=== PATIENT | male | born 1965 | race Caucasian/White ===

== ENCOUNTER → 2018-03-04 00:11 | Outpatient (CLI) | payer MEDICAID, SELFPAY ==
--- NOTE | 2018-03-04 07:35 | DI.REPORT_ITS ---
SYMPTOMS/DIAGNOSIS: CHRONIC HEPATITIS B, B18.1, HYPERLIPIDEMIA, E78.5, BENIGN PROSTATIC HYPERPLASIA, N40.0, ABDOMINAL PAIN, R10.9 ABDOMINAL ULTRASOUND: Routine examination was performed. Comparison is 10/06/15. The aorta and IVC are not well visualized. The mid and distal aorta are of normal caliber. The proximal and mid inferior vena cava are unremarkable. The liver shows increased echogenicity consistent with fatty infiltration. No discrete hepatic mass is seen.. Portions of the liver cannot be well evaluated due to its position in the abdomen. The gallbladder is negative. No stones or sludge is seen. The pancreatic tail cannot be seen due to overlying bowel. The remainder of the pancreas is unremarkable. The patient is status post right nephrectomy. The left kidney is unremarkable. The spleen is mildly enlarged at 13.4 cm. IMPRESSION: 1. Limited examination due to patient body habitus and overlying bowel. 2. Hepatic steatosis. 3. Mild splenomegaly.
[2018-03-04 07:45] LABS: ALT 31 U/L (12-78); AST 24 U/L (15-37); Albumin 4.1 g/dL (3.4-5.0); Alkaline Phosphatase 66 U/L (46-116); Anion Gap 7.2 mmol/L (3-11); BUN 16 mg/dL (7-18); Bilirubin, Total 1.1 mg/dL (0.2-1.0); CO2 32.8 mmol/L (21.0-32.0); CREATININE 1.53 mg/dL (0.70-1.30); Calcium 9.2 mg/dL (8.5-10.1); Chloride 99 mmol/L (98-107); Cholesterol 250 mg/dL (50-200); Estimated GFR 48.22 (mL/min/1.73m2); Glucose 120 mg/dL (70-100); HDL Cholesterol 31 mg/dL (40-60); LDL CHOLESTEROL 166 mg/dL (<100); Sodium 139 mmol/L (136-145); Total Protein 8.3 g/dL (6.4-8.2); Triglyceride 327 mg/dL (30-150)
[2018-03-05 10:27] LABS: PSA, Screening 0.5 ng/ml (0-3.5)
== END ==
PROVIDERS: PCP Emergency Medicine; Visit Provider Emergency Medicine
DX: E78.5 Hyperlipidemia, unspecified (principal); B18.1 Chronic viral hepatitis B without delta-agent; N40.0 Benign prostatic hyperplasia without lower urinary tract symptoms; R10.9 Unspecified abdominal pain; Z12.5 Encounter for screening for malignant neoplasm of prostate; K76.0 Fatty (change of) liver, not elsewhere classified; R16.1 Splenomegaly, not elsewhere classified
CPT/HCPCS: 36415; 80053; 80061; 83721; 84153; 76700; 82105

== ENCOUNTER 2018-09-02 17:50 | Emergency (ER) | payer MEDICAID, SELFPAY ==
[2018-09-02] VITALS (29 sets, daily range): BP systolic 89–203; BP diastolic 58–147; PULSE 39–170; RESP 0–28; TEMP 34.8–35.7; O2SAT 81–95
--- NOTE | 2018-09-02 17:50 | DI.RAD_ITS ---
SYMPTOM/DIAGNOSIS: CARDIAC ARREST PORTABLE UPRIGHT CHEST: Comparison is made with 24 Apr 2016. The heart size is within normal limits for projection. An endotracheal tube has been inserted with tip at the level of the clavicles. A nasogastric tube projects beneath the diaphragm. The lungs are grossly clear. A lead partially obscures the right lung. IMPRESSION: Satisfactory position of endotracheal tube and nasogastric tube.
[2018-09-02 18:07] LABS: HCT 42.1 % (40.0-50.0); HGB 13.7 g/dL (13.5-17.5); Mean Corp. HGB Concentration 32.5 g/dL (32.0-36.0); Mean Corpuscular Hemoglobin 33.4 pg (27.0-33.0); Mean Corpuscular Volume 102.7 fL (80-95); Mean Platelet Volume 10.8 fL (8.0-11.0); Platelet Count 140 x1000/uL (130-400); RBC Distribution Width 12.3 % (11.8-14.1); White Blood Cell Count 15.61 k/cumm (4.4-10.8)
[2018-09-02] MEDS: Aspirin 300 MG SUPP PR (18:07)
[2018-09-02 18:19] LABS: INR 1.5 (0.9-1.1); Prothrombin Time 14.9 sec (9.3-11.0)
[2018-09-02 18:21] LABS: Absolute Lymphocyte Count 6.24 k/cumm (1.2-3.4); Absolute Monocyte Count 0.94 k/cumm (0.11-0.7); Absolute Neutrophil Count 7.96 k/cumm (1.2-6.7); Atypical Lymphocytes % 4
[2018-09-02 18:22] LABS: Diff Comment Manual Differential; RBC Morphology Normal
[2018-09-02 18:23] LABS: ALT 61 U/L (12-78); AST 68 U/L (15-37); Albumin 2.8 g/dL (3.4-5.0); Alkaline Phosphatase 62 U/L (46-116); Anion Gap 23.9 mmol/L (3-11); BUN 19 mg/dL (7-18); Bilirubin, Total 0.2 mg/dL (0.2-1.0); CO2 17.1 mmol/L (21.0-32.0); CREATININE 1.86 mg/dL (0.70-1.30); Calcium 8.5 mg/dL (8.5-10.1); Chloride 105 mmol/L (98-107); Estimated GFR 38.49 (mL/min/1.73m2); Glucose 306 mg/dL (70-100); Magnesium 2.4 mg/dL (1.8-2.4); Potassium 3.2 mmol/L (3.5-5.1); Sodium 146 mmol/L (136-145); Total Protein 6.1 g/dL (6.4-8.2)
[2018-09-02] MEDS: Clopidogrel 300 MG TAB PO (18:23)
[2018-09-02 18:26] LABS: Troponin I 0.16 ng/mL (0.00-0.06)
--- NOTE | 2018-09-02 18:45 | DI.VRAD_ITS ---
EXAM: XR Chest, 1 View EXAM DATE/TIME: 09/02/2018 5:52 PM CLINICAL HISTORY: 52 years old, male; Signs and symptoms; Cardiac arrest TECHNIQUE: XR of the chest, 1 view. COMPARISON: CR CHEST 2 VIEWS PA,LAT 04/24/2016 8:17 AM FINDINGS: Tubes, catheters and devices: Tip of endotracheal tube located approximately 5.5 cm above the rosie. Lungs: No alveolar infiltrate. Pleural space: No pleural fluid collection. Heart/Mediastinum: Heart size is prominent but within normal limits for an AP projection of the chest. Bones/joints: Unremarkable. IMPRESSION: 1. No acute infiltrates or congestive changes. 2. Tip of endotracheal tube located approximately 5.5 cm above the rosie. Dictated and Authenticated by: Arnoldo Jacobs MD. Ordering:ANGEL Médnez MD
--- NOTE | 2018-09-02 19:00 | NUR.NOTE ---
wallet given to - Donna.Nursing Note:
--- NOTE | 2018-09-02 20:10 | NUR.NOTE ---
report called [facility], transfered by [facility] paramedics Nursing Note:
--- NOTE | 2018-09-02 23:43 | ED.GENADUL_ITS ---
Discharge Plan Disposition Patient Disposition: [facility] Condition: Serious Discharge Details Chief Complaint: CodeBlue Clinical Impression: ST elevation IA (STEMI), Cardiac arrest, Respiratory arrest, Ventricular fibrillation Reason For Visit: LISA Primary Care Provider: Unknown,Unknown ED Provider: Fred Hanna Home Meds and New Rx's Prescriptions: No Action albuterol sulfate 8.5 GM HFA aerosol inhaler 2 puff Inhalation Q6H PRN Qty: 1 RF: 12 lorazepam [Ativan] 1 MG tablet 1 mg PO HS Qty: 10 RF: 1 amlodipine [Norvasc] 5 MG tablet 5 mg PO DAILY Qty: 90 RF: 3 metoprolol succinate [Toprol XL] 200 MG tablet extended release 24 hr 1 tab PO DAILY Qty: 90 RF: 4 losartan 100 MG tablet 100 mg PO DAILY Qty: 90 RF: 3 adefovir [Hepsera] 10 MG tablet 10 mg PO DAILY Qty: 90 RF: 4 omeprazole magnesium [Prilosec OTC] 20 MG tablet,delayed release (DR/EC) 20 mg PO DAILY Qty: 90 RF: 4 Medical Decision Making Prehospital: This is a 52-year-old male who presents while undergoing active CPR for cardiac arrest. Patient has cardiac risk factors diabetes, hypertension, high cholesterol and tobacco abuse as well as hepatitis and a previous nephrectomy. Patient was in the car with his with chest pain driving to [place] for further evaluation when he suddenly stopped breathing had agonal movements and respirations. pulled over, screen for help, he was taken out of the car within 2-3 minutes CPR was started by bystanders. EMS arrived within 7 minutes, and he is noted to be in V. fib. 7 shocks were administered, 3 rounds of epinephrine, 300 mg of amiodarone were administered. He had a brief episode of ROSC prior to arrival but then went into cardiac arrest again just prior to arrival to the ED. In hospital ED: Initial treatment phase 1: Upon patient arrival he was noted to be in V. fib, patient was transferred, high-quality CPR was continued. CPR was continued for 2 minutes, a second IO was placed in the right tibia, fluids were started. Within the first 2 minutes 150 mg of amiodarone were administered, 4 g of magnesium was started concern for potential torsades, and with his V. fib, and epinephrine was administered. At the initial 2 minutes pulse check, the Combitube was replaced with a 7.5 mm endotracheal tube, it was placed successfully with no complication. The patient noted to be in V. fib and additional shock was given. This continued for 2-3 rounds, he was continually in V. fib, and repetitive shocks were given. Each time resulting in no significant change to his dysrhythmia. During this phase additional epinephrine was given, calcium gluconate and bicarb were both added for cardiac membrane stabilization and concern for potential hyperkalemia. It was after these administrations that the patient did have ROSC, however he had notable bradycardia. This was confirmed with bedside ultrasound. Transcutaneous pacing was started, the patient's pressure improved, and he was started on a dirty epinephrine drip. It was during this period that a left- sided triple-lumen catheter was placed into the left groin. There was a questionably small air leak, and review of the x-ray demonstrates that the endotracheal tube is 5.5 cm above the rosie. The endotracheal tube was advanced 2 cm, no cuff leak was noted after this, and oxygen saturation is continued to remain stable. Rectal aspirin was given. The patient was actively cooled with multiple bags of ice. Temp Pardo was placed, with a goal temperature of 34 ?C. Pacing unfortunately complicated EKG administration. We did contact [facility] at this time, and I discussed the case with the it senior analyst Dr. Zamudio. She agreed with the current plan, and recommended transfer. Initial treatment phase 2: Unfortunately the patient went back into cardiac arrest after a few minutes. He again demonstrated V. fib, high-quality CPR was started, epinephrine was administered, and after just 1-2 rounds, the patient had ROSC which was confirmed with bedside ultrasound. Pressure rebounded, the patient began breathing spontaneously but with agonal respirations. A formal epinephrine drip was then started, the patient was started on amiodarone drip at 1 mg/min. Formal EKG was then performed, and demonstrated notable ST elevation in lead II, III, and aVF with reciprocal depression in aVL, V2. With clear evidence of inferior STEMI, contraindications were immediately reviewed, and TNKase was promptly administered. Recommend immediate transfer down to the Payroll [facility]. 300 mg of Plavix were administered, heparin bolus, and subsequent heparin infusion was started. Propofol and fentanyl infusions were used for sedation, however in spite of this the patient continued did not demonstrate notable resistance with bag valve. Because of this the decision was made to administer 100 mg of rocuronium for paralysis, and safe respiratory management. Initially the patient did have very mild hypoxemia in spite of being on 100% FiO2. He is saturating in the high 80s, out of concern for potential arts-like picture with his prolonged CPR, we did increase the PEEP to 7, and the patient demonstrated notable improvement in his O2 sats greater than 95%. Against patient will be transferred by [facility] to [facility]. Patient will be transferred under and Dr Huang. I have extensively reviewed the treatment plan with the patients family. I have addressed all patient's family concerns at this time. I have also discussed the plan with the admitting physician and they agree with the current assessment and plan and have agreed to assume responsibility for the patient. All parties demonstrate verbal understanding and agreement with our assessment and plan at this time. Upon my evaluation, this patient had a high probability of imminent or life- threatening deterioration, which required my direct attention, intervention, and personal management. I have personally provided 100 minutes of critical care time exclusive of time spent on separately billable procedures. Time includes review of laboratory data, radiology results, discussion with consultants, and monitoring for potential decompensation. Interventions were performed as documented above. EKG 18: 15 Rate 54, sinus rhythm, notable concerning ST elevation greater than 3 mm in lead III and aVF with 1 mm elevation in lead II, and III millimeter depression in aVL. Concerning for inferior STEMI EKG 18: 50 Rate 96, notable ST elevation in leads III and aVF small amount of elevation in lead II, depression in aVL, concerning for inferior STEMI. Procedure: Central Venous Catheter Femoral Line Indication: Hemodynamic monitoring/Intravenous access A time-out was completed verifying correct patient, procedure, site, positioning, and special equipment if applicable. The patient was placed in a dependent position appropriate for central line placement based on the vein to be cannulated. The patient?s left groin was prepped and draped in sterile fashion. A triple lumen catheter was introduced into the the femoral vein using the Seldinger technique and under ultrasound guidance. The catheter was threaded smoothly over the guide wire and appropriate blood return was obtained. Each lumen of the catheter was evacuated of air and flushed with sterile saline. The catheter was then sutured in place to the skin and a sterile dressing applied. Perfusion to the extremity distal to the point of catheter insertion was checked and found to be adequate. Estimated Blood Loss: 5ml's The patient tolerated the procedure well and there were no complications. Procedure: Endotracheal Intubation Indication: Respiratory Distress/cardiac arrest/respiratory rate A time-out was completed verifying correct patient, procedure, site, positioning, and special equipment if applicable. The patient was placed in a flat position. The patient was easily ventilated using an ambu bag. The MAC 3 BLADE was used and inserted into the oropharynx at which time there was a Grade 1 view of the vocal cords. A 7.5-tajik endotracheal tube was inserted and visualized going through the vocal cords. The stylette was removed. Colorimetric change was visualized on the CO2 meter. Breath sounds were heard in both lung francis equally. The endotracheal tube was placed at 22 cm, measured at the teeth. A chest x-ray was ordered to assess for pneumothorax and verify endotrachealtube placement. No pneumothorax was seen and tube was in good position. The patient tolerated the procedure well and there were no complications. FINDINGS: Tubes, catheters and devices: Tip of endotracheal tube located approximately 5.5 cm above the rosie. Lungs: No alveolar infiltrate. Pleural space: No pleural fluid collection. Heart/Mediastinum: Heart size is prominent but within normal limits for an AP projection of the chest. Bones/joints: Unremarkable. IMPRESSION: 1. No acute infiltrates or congestive changes. 2. Tip of endotracheal tube located approximately 5.5 cm above the rosie. Dictated and Authenticated by: Arnoldo Jacobs MD. Ordering:ANGEL Méndez MD HPI General Date/Time Provider Initiated Documentation: 09/02/18 18:01 . HPI Narrative: This is a 52-year-old male with a past medical history of hypertension, high cholesterol, diabetes, kidney cancer and nephrectomy, and tobacco abuse as well as hepatitis who presents today for cardiac arrest. Per , the patient called his complaining of mild chest pain, he got in the car and were on their way driving to [place] when he suddenly grabbed his chest, had atypical movements, agonal breathing and then stopped breathing. She immediately pulled over, screamed for help, bystanders pulled him out of the car and CPR was given by bystanders within 2 minutes. EMS arrived within 7 minutes and began high-quality CPR. On their arrival he was noted to be in V. fib, 7 shocks were given, 3 administrations of epinephrine, and 300 mg of amiodarone. The patient did have loss can very briefly in route to the hospital, but then went back into cardiac arrest. No other modifying factors. Patient is currently in cardiac arrest undergoing CPR. Combitube is in place, and IO line is in place. Related Data Home Medications Medication Instructions Recorded Confirmed albuterol sulfate 2 puff INHALATION Q6H PRN #1 05/24/15 inhaler lorazepam [Ativan] 1 mg PO HS #10 tab 09/26/15 amlodipine [Norvasc] 5 mg PO DAILY #90 tab-cap 10/17/17 adefovir [Hepsera] 10 mg PO DAILY #90 tab-cap 12/02/17 losartan 100 mg PO DAILY #90 tab-cap 12/02/17 metoprolol succinate [Toprol Xl] 1 tab PO DAILY #90 tab-cap 12/02/17 omeprazole magnesium [Prilosec Otc] 20 mg PO DAILY #90 tab-cap 12/02/17 Previous Rx's Medication Instructions Recorded amlodipine [Norvasc] 5 mg PO DAILY #90 tab-cap 10/17/17 adefovir [Hepsera] 10 mg PO DAILY #90 tab-cap 12/02/17 losartan 100 mg PO DAILY #90 tab-cap 12/02/17 metoprolol succinate [Toprol Xl] 1 tab PO DAILY #90 tab-cap 12/02/17 omeprazole magnesium [Prilosec Otc] 20 mg PO DAILY #90 tab-cap 12/02/17 Allergies Allergy/AdvReac Type Severity Reaction Status Date / Time doxycycline AdvReac Intermediate sweat and Unverified 10/29/17 13:28 rash lisinopril AdvReac Intermediate extreme Unverified 10/29/17 13:28 fatigue General Stated Complaint: CodeBlue RADHA: 1 Review of Systems Review of Systems Unobtainable due to endotracheal tube PFSH Surgical History Nephrectomy Family History Mother Essential hypertension Hyperlipidemia Father Diabetes Personal history of malignant neoplasm Grandfather Essential hypertension Heart disease Hyperlipidemia Grandfather No problems noted. Grandmother Personal history of malignant neoplasm Stroke Grandmother Personal history of malignant neoplasm Sister Depression Son No problems noted. Social History Smoking/Tobacco Use Status: Current every day Exam Narrative Exam Narrative: GEN: unresponsive, in extremis SKIN: pale, cool NECK: no signs of trauma HENT: normocephalic atraumatic, pupils are sluggish. Corneal reflex present. CV: V. fib, no pulses, CPR in progress RESP: no spontaneous respirations, intubated with a Combitube. Vomit noted in the mouth. ABD: soft, nondistended. MSK: no spontaneous movements, no obvious deformity, interosseous line is present in the left tibia BACK: no obvious trauma NEURO: unresponsive, pupils are sluggish, corneal reflexes present, gag is absent, no spontaneous movement PSYCH: unresponsive Course Vital Signs Pulse 106 H 09/02/18 17:49 Respiratory Rate 0 L 09/02/18 17:49 Blood Pressure 120/85 09/02/18 17:49 Temperature 35.6 C L 09/02/18 18:47 Pulse 96 H 09/02/18 18:47 Pulse 95 H 09/02/18 18:47 Respiratory Rate 13 09/02/18 18:47 Blood Pressure 153/90 H 09/02/18 18:47 Blood Pressure Mean 104 09/02/18 18:47 Pulse Oximetry 95 09/02/18 19:00 Respiratory End-tidal CO2 36 09/02/18 18:47 Lab/Test Results Lab/Test Results: Laboratory Tests Range/Units 09/02/18 09/02/18 09/02/18 18:00 18:00 18:00 WBC (4.4-10.8) k/cumm 15.61 H RBC (4.50-6.00) m/cumm 4.10 L Hgb (13.5-17.5) g/dL 13.7 Hct (40.0-50.0) % 42.1 MCV (80-95) fL 102.7 H MCH (27.0-33.0) pg 33.4 H MCHC (32.0-36.0) g/dL 32.5 RDW (11.8-14.1) % 12.3 Plt Count (130-400) x1000/uL 140 MPV (8.0-11.0) fL 10.8 Immature Gran % See Differential Neutrophils % 49.0 Band Neutrophils % % 2.0 Lymphocytes % 36.0 Atypical Lymphs % 4 Monocytes % 6.0 Eosinophils % 0.0 Basophils % 0.0 Absolute Neutrophils (1.2-6.7) k/cumm 7.96 H Absolute Lymphocytes (1.2-3.4) k/cumm 6.24 H Absolute Monocytes (0.11-0.7) k/cumm 0.94 H Absolute Eosinophils (0.0-0.7) k/cumm 0.00 Absolute Basophils (0.0-0.2) k/cumm 0.00 Metamyelocytes % 2.0 Myelocytes % 1.0 Differential Comment Manual differential RBC Morphology Normal PT (9.3-11.0) sec INR (0.9-1.1) APTT (21.0-31.4) sec Sodium (136-145) mmol/L 146 H Potassium (3.5-5.1) mmol/L 3.2 L Chloride (98-107) mmol/L 105 Carbon Dioxide (21.0-32.0) mmol/L 17.1 L Anion Gap (3-11) mmol/L 23.9 H BUN (7-18) mg/dL 19 H Creatinine (0.70-1.30) mg/dL 1.86 H Estimated GFR/1.73 m2 (mL/min/1.73m2) 38.49 Glucose (70-100) mg/dL 306 H Lactate (0.6-1.4) mmol/l 17.0 H Calcium (8.5-10.1) mg/dL 8.5 Magnesium (1.8-2.4) mg/dL 2.4 Total Bilirubin (0.2-1.0) mg/dL 0.2 AST (15-37) U/L 68 H ALT (12-78) U/L 61 Alkaline Phosphatase (46-116) U/L 62 Troponin I (0.00-0.06) ng/mL 0.16 H Total Protein (6.4-8.2) g/dL 6.1 L Albumin (3.4-5.0) g/dL 2.8 L Range/Units 09/02/18 18:00 WBC (4.4-10.8) k/cumm RBC (4.50-6.00) m/cumm Hgb (13.5-17.5) g/dL Hct (40.0-50.0) % MCV (80-95) fL MCH (27.0-33.0) pg MCHC (32.0-36.0) g/dL RDW (11.8-14.1) % Plt Count (130-400) x1000/uL MPV (8.0-11.0) fL Immature Gran % Neutrophils % Band Neutrophils % % Lymphocytes % Atypical Lymphs % Monocytes % Eosinophils % Basophils % Absolute Neutrophils (1.2-6.7) k/cumm Absolute Lymphocytes (1.2-3.4) k/cumm Absolute Monocytes (0.11-0.7) k/cumm Absolute Eosinophils (0.0-0.7) k/cumm Absolute Basophils (0.0-0.2) k/cumm Metamyelocytes % Myelocytes % Differential Comment RBC Morphology PT (9.3-11.0) sec 14.9 H INR (0.9-1.1) 1.5 H APTT (21.0-31.4) sec 52.0 H Sodium (136-145) mmol/L Potassium (3.5-5.1) mmol/L Chloride (98-107) mmol/L Carbon Dioxide (21.0-32.0) mmol/L Anion Gap (3-11) mmol/L BUN (7-18) mg/dL Creatinine (0.70-1.30) mg/dL Estimated GFR/1.73 m2 (mL/min/1.73m2) Glucose (70-100) mg/dL Lactate (0.6-1.4) mmol/l Calcium (8.5-10.1) mg/dL Magnesium (1.8-2.4) mg/dL Total Bilirubin (0.2-1.0) mg/dL AST (15-37) U/L ALT (12-78) U/L Alkaline Phosphatase (46-116) U/L Troponin I (0.00-0.06) ng/mL Total Protein (6.4-8.2) g/dL Albumin (3.4-5.0) g/dL
== END 2018-09-02 20:00 | disposition short-term general hospital (02) ==
PROVIDERS: Physician Assistant; Emergency Provider Student in an Organized Health Care Education/Training Program
DX: I21.4 Non-ST elevation (NSTEMI) myocardial infarction (principal); I46.9 Cardiac arrest, cause unspecified; R09.2 Respiratory arrest; I49.01 Ventricular fibrillation; E11.9 Type 2 diabetes mellitus without complications; I10 Essential (primary) hypertension; F17.210 Nicotine dependence, cigarettes, uncomplicated
CPT/HCPCS: 31500; 36415; 80053; 93005; 96365; 96366; 96375; 96376; 99291; 99292; 71045; 83605; 83735; 84484; 85025; 85610; 85730; 93010; J3010; J3101; J3475; J3490